=== PATIENT | male | born 1985 | race Caucasian/White ===

== ENCOUNTER → 2021-01-19 | Day surgery (SDC) | payer BC | LOC: ENDO/OP 07:59 | PROVIDERS: ATTEND Surgery | DX: K44.9 Diaphragmatic hernia without obstruction or gangrene (principal); Z88.1 Allergy status to other antibiotic agents | CPT/HCPCS: 91010 ==

== ENCOUNTER 2021-02-02 17:58 | Outpatient (CLI) | payer BC ==
[2021-01-17 03:44] LABS: SARS-CoV-2 PCR by NAA Not Detected (NotDetected)
[2021-02-02 18:58] LABS: #Eosinphils 0.2 10x3/uL (0.0-0.5); #Monocytes 0.5 10x3/uL (0.0-1.1); %Basophils 0.6 % (0.0-2.0); %Eosinophils 3.2 % (0.0-6.0); %Lymphocytes 30.7 % (18.0-47.0); %Monocytes 8.6 % (0.0-10.0); %Neutrophils 56.7 % (40.0-75.0); Hemoglobin 16.1 g/dL (13.5-17.5); Mean Corpuscular HGB CONC 34.5 g/dL (32.0-36.0); Mean Corpuscular Hemoglobin 30.1 pg (27.0-33.0); Mean Corpuscular Volume 87.3 fl (81.2-95.1); Mean Platelet Volume 10.4 fl (7.4-10.4); Platelet Count 221 10x3/uL (150-450); RBC Distribution Width 12.5 % (11.5-14.5); Red Blood Cell (RBC) Count 5.34 10x6/uL (4.32-5.72); White Blood Cell (WBC) Count 5.3 10x3/uL (3.5-10.5)
[2021-02-02 19:09] LABS: Anion Gap 12 mmol/L (10-20); BUN (Urea Nitrogen) 14 mg/dL (8.9-20.6); Calc. Creatinine Clearance 0 mL/min (70-130); Calcium 9.6 mg/dL (7.8-10.44); Carbon Dioxide 28 mmol/L (22-29); Chloride 104 mmol/L (98-107); Glucose 87 mg/dL (70-105); Potassium 3.9 mmol/L (3.5-5.1); Sodium 140 mmol/L (136-145)
[2021-02-03 04:34] LABS: SARS-CoV-2 PCR by NAA Not Detected (NotDetected)
== END 2021-02-02 17:59 | disposition home or self-care (01) ==
LOC: LABBT 17:58
PROVIDERS: ATTEND Surgery
DX: Z01.812 Encounter for preprocedural laboratory examination (principal); K44.9 Diaphragmatic hernia without obstruction or gangrene; Z20.822 Contact with and (suspected) exposure to COVID-19
CPT/HCPCS: 80048; 85025; 87635; U0003; U0005

== ENCOUNTER 2021-02-07 06:59 | Observation (INO) | payer BC ==
[2021-02-03 12:42] VITALS: BMI 24.7
[2021-02-07] MEDS ORDERED: Levofloxacin 500 mg/D5W 100 ml Premix Bag ONE (09:01)
[2021-02-07] MEDS ORDERED: Bupivacaine 0.25% HCL 30 ML VIAL ONE (09:46)
[2021-02-07] MEDS ORDERED: Lidocaine 1% w/Epinephrine 1:100K 20 ML VIAL ONE (09:46)
[2021-02-07] MEDS ORDERED: Midazolam HCl 2 mg/2 ml Vial ONE (10:05)
[2021-02-07] MEDS ORDERED: Fentanyl 100 MCG/2 ML VIAL ONE ×2 (10:05→12:08)
[2021-02-07] MEDS ORDERED: Lidocaine 1% PF 5 ML VIAL ONE (10:17)
[2021-02-07] MEDS ORDERED: Rocuronium Bromide 10 MG/ML (10ML VIAL) ONE (10:17)
[2021-02-07] MEDS ORDERED: Glycopyrrolate 0.2 MG/ML 5 ML SYRINGE ONE (10:17)
[2021-02-07] MEDS ORDERED: Dexamethasone 20 MG/5 ML VIAL ONE (10:17)
[2021-02-07] MEDS ORDERED: ePHEDrine 50 MG/ML VIAL ONE (10:17)
[2021-02-07] MEDS ORDERED: Succinylcholine 200 MG/10 ml SYRINGE FS ONE (10:17)
[2021-02-07] MEDS ORDERED: Esmolol 100 MG/10 ML VIAL ONE (10:17)
[2021-02-07] MEDS ORDERED: PROPOFOL 200 MG/20 ML VIAL ONE (10:17)
[2021-02-07] MEDS ORDERED: Meperidine HCl/PF 25 MG/ML VIAL ONE (12:11)
[2021-02-07] MEDS ORDERED: hydrALAZINE 20 MG/ML VIAL SLOW IVP PRN (12:18)
[2021-02-07] MEDS ORDERED: Ondansetron PF 4 MG/2 ML Vial IVP PRN ×2 (12:18→12:30)
[2021-02-07] MEDS ORDERED: Promethazine HCl 25 MG/ML VIAL IM PRN ×2 (12:18→12:30)
[2021-02-07] MEDS ORDERED: Dextrose 50% Abboject 50 ML SYRINGE SLOW IVP PRN (12:18)
[2021-02-07] MEDS ORDERED: Dextrose 5% in Water 1,000 ML IV PRN (12:18)
[2021-02-07] MEDS ORDERED: diphenhydrAMINE 25 MG CAP PO PRN (12:30)
[2021-02-07] MEDS ORDERED: Zolpidem Tartrate 5 MG TAB PO PRN (12:30)
[2021-02-07] MEDS ORDERED: fentaNYL Citrate/PF 2,000 MCG in Sodium Chloride 0.9% 60 ML IV PRN (12:30)
[2021-02-07] MEDS ORDERED: diphenhydrAMINE 50 MG/ML VIAL IM/IV PRN (12:30)
[2021-02-07] MEDS ORDERED: Naloxone HCl 0.4 mg/ml Vial IV PRN (12:30)
[2021-02-07] MEDS: D5 1/2 NS w/20 mEq KCL 1,000 ML IV SCH (16:40)
[2021-02-07] MEDS: Acetaminophen 500 MG TAB PO SCH (18:44)
[2021-02-07] MEDS: Ketorolac Tromethamine 30 MG/ML VIAL IVP SCH (18:45)
[2021-02-07] MEDS: Famotidine/PF 20 mg/2ml Vial SLOW IVP SCH (20:37)
[2021-02-07] MEDS: Famotidine 20 MG TAB PO SCH (22:41)
[2021-02-08] MEDS: Ketorolac Tromethamine 30 MG/ML VIAL IVP SCH ×2 (00:04→05:03)
[2021-02-08] MEDS: Acetaminophen 500 MG TAB PO SCH ×2 (00:05→06:48)
[2021-02-08] MEDS: D5 1/2 NS w/20 mEq KCL 1,000 ML IV SCH (05:03)
[2021-02-08 06:30] LABS: #Basophils 0.1 thou/uL (0.0-0.2); #Monocytes 0.8 thou/uL (0.11-0.59); #Neutrophils 5.1 thou/uL (1.40-6.50); %Basophils 1.7 % (0.0-1.0); %Eosinophils 0.2 % (0.0-10.0); %Lymphocytes 13.6 % (21.0-51.0); %Monocytes 11.9 % (0.0-10.0); %Neutrophils 72.6 % (42.0-75.0); Hemoglobin 15.7 g/dL (14.0-18.0); Mean Corpuscular HGB CONC 35.1 g/dL (32.0-36.0); Mean Corpuscular Hemoglobin 31.6 pg (27.0-31.0); Mean Corpuscular Volume 90.1 fL (78.0-98.0); Mean Platelet Volume 7.6 fL (7.4-10.4); Platelet Count 209 thou/uL (130-400); RBC Distribution Width 11.6 % (11.5-14.5); Red Blood Cell (RBC) Count 4.97 mill/uL (4.70-6.10)
[2021-02-08 06:44] LABS: Anion Gap 14 mmol/L (10-20); BUN (Urea Nitrogen) 11 mg/dL (8.9-20.6); Calc. Creatinine Clearance 148 mL/min (70-130); Calcium 9.1 mg/dL (7.8-10.44); Carbon Dioxide 28 mmol/L (22-29); Chloride 102 mmol/L (98-107); Glucose 113 mg/dL (70-105); Potassium 3.6 mmol/L (3.5-5.1); Sodium 140 mmol/L (136-145)
[2021-02-08 08:02] VITALS: TEMP 97.7
[2021-02-08] MEDS ORDERED: Hydrocodone-Acetamin 15 ML UDCUP PO PRN (08:48)
[2021-02-08] MEDS ORDERED: Acetaminophen 500 MG TAB PO PRN (08:49)
[2021-02-08] MEDS ORDERED: Enoxaparin Sodium 40 MG/0.4 ML SYRINGE SC SCH (09:00)
[2021-02-08] MEDS ORDERED: FLU VACC QS2020-21(6MOS UP)/PF 60 MCG/0.5 ML SYRINGE IM ONE (09:00)
[2021-02-08] MEDS: Famotidine/PF 20 mg/2ml Vial SLOW IVP SCH (09:08)
[2021-02-08] MEDS: Famotidine 20 MG TAB PO SCH (09:08)
[2021-02-08 11:48] VITALS: BP 136/85
== END 2021-02-08 11:30 | disposition home or self-care (01) ==
LOC: SDC 06:59 → SURG A 12:18
PROVIDERS: ADMIT Surgery; ATTEND Surgery
PROC: 0DV44ZZ Restriction of Esophagogastric Junction, Percutaneous Endoscopic Approach (ICD-10-PCS; principal; 2021-02-07)
DX: K44.9 Diaphragmatic hernia without obstruction or gangrene (principal); K21.9 Gastro-esophageal reflux disease without esophagitis; Z79.899 Other long term (current) drug therapy; Z88.1 Allergy status to other antibiotic agents
CPT/HCPCS: 36415; 80048; 85025; 96372; 96374; 96375; 96376; G0378; J0690; J1100; J1650; J1885; J1956; J2175; J2250; J2704; J3010; J3480; J3490; S0020; S0028